=== PATIENT | female | born 1980 | race Hispanic/Latino ===

== ENCOUNTER 2019-10-02 19:53 | Emergency (ER) | payer SELFPAY ==
[2019-10-02] MEDS ORDERED: ONDANSETRON 4 MG/2 ML INJ IV ONE (20:32)
[2019-10-02] MEDS ORDERED: SODIUM CHLORIDE 0.9% 1000 ML 1,000 ML IV ONE (20:32)
--- NOTE | 2019-10-02 20:36 | Emergency Department Report ---
HPI <KENNEDY BELLANETTA - Last Filed: 10/03/19 19:30> - HPI HPI: This is a 39-year-old female presents to the emergency department with the complaint of withdrawal symptoms from heroin, as well as some auditory hallucinations. Patient says that she has a history of heroin use but she thinks that she was given some other type of drug or it was laced with something. She last used this drug this morning. Patient says that she is having nausea, diarrhea, body aches, chills. She is started hearing voices. The patient also says that she is seeing an "vinicius with red wings that is following me" and it is telling her that "the devil is coming." She denies any suicidal or homicidal ideation. Patient has a past medical history of seizures and has been noncompliant with her medication for the past week. She previously was on Depakote but was recently switched to another medication that she cannot member the name of. <NORMAN HOPKINS S - Last Filed: 10/04/19 10:14> - General Chief Complaint: Psych Time Seen by Provider: 10/02/19 20:07 ED Past Medical Hx - Past Medical History Previous Medical History?: Yes Hx Psychiatric Treatment: Yes (anxiety, depression) - Surgical History Past Surgical History?: No - Social History Smoking Status: Current Every Day Smoker Substance Use Type: Heroin <NORMAN HOPKINS Monika - Last Filed: 10/04/19 10:14> ED Review of Systems ROS: Stated complaint: MH EVAL/DRUG ABUSE Other details as noted in HPI <BELLAMALKA - Last Filed: 10/03/19 19:30> ROS: Stated complaint: MH EVAL/DRUG ABUSE Other details as noted in HPI Comment: All other systems reviewed and negative Constitutional: chills. denies: fever Eyes: denies: eye pain, vision change ENT: denies: ear pain, throat pain Respiratory: denies: cough, shortness of breath Cardiovascular: denies: chest pain, palpitations Gastrointestinal: vomiting, diarrhea Genitourinary: denies: dysuria, discharge Musculoskeletal: myalgia. denies: joint swelling Neurological: denies: headache, weakness Psychiatric: auditory hallucinations, visual hallucinations. denies: homicidal thoughts, suicidal thoughts <NORMAN HOPKINS - Last Filed: 10/04/19 10:14> Physical Exam - Physical Exam Vital Signs: Vital Signs 10/02/19 10/02/19 10/02/19 19:57 20:39 22:19 Temperature 98.1 F 98.3 F Pulse Rate 113 H 99 H 99 H Respiratory 20 18 Rate Blood Pressure 149/92 149/92 Blood Pressure 154/81 [Left] O2 Sat by Pulse 98 98 Oximetry 10/03/19 02:23 Temperature 98.3 F Pulse Rate 99 H Respiratory 18 Rate Blood Pressure Blood Pressure 166/71 [Left] O2 Sat by Pulse 99 Oximetry <MALKA BELLA - Last Filed: 10/03/19 19:30> - Physical Exam Vital Signs: Vital Signs 10/02/19 19:57 Temperature 98.1 F Pulse Rate 113 H Respiratory 20 Rate Blood Pressure 149/92 O2 Sat by Pulse 98 Oximetry Physical Exam: GENERAL: The patient is well-developed well-nourished. HENT: Normocephalic. Atraumatic. Patient has moist mucous membranes. EYES: Extraocular motions are intact. NECK: Supple. Trachea is midline. CHEST/LUNGS: Clear to auscultation. There is no respiratory distress noted. HEART/CARDIOVASCULAR: Regular. There is mild tachycardia. There is no murmur. ABDOMEN: Abdomen is soft, nontender. Patient has normal bowel sounds. SKIN: Skin is warm and dry. NEURO: The patient is awake, alert, and oriented. The patient is cooperative. The patient has no motor or sensory neurologic deficits. MUSCULOSKELETAL: There is no tenderness or deformity. There is no limitation range of motion. PSYCH: The patient appears anxious. <NORMAN HOPKINS - Last Filed: 10/04/19 10:14> ED Course Vital Signs 10/02/19 10/02/19 10/02/19 19:57 20:39 22:19 Temperature 98.1 F 98.3 F Pulse Rate 113 H 99 H 99 H Respiratory 20 18 Rate Blood Pressure 149/92 149/92 Blood Pressure 154/81 [Left] O2 Sat by Pulse 98 98 Oximetry 10/03/19 02:23 Temperature 98.3 F Pulse Rate 99 H Respiratory 18 Rate Blood Pressure Blood Pressure 166/71 [Left] O2 Sat by Pulse 99 Oximetry <MALKA BELLA - Last Filed: 10/03/19 19:30> Vital Signs 10/02/19 19:57 Temperature 98.1 F Pulse Rate 113 H Respiratory 20 Rate Blood Pressure 149/92 O2 Sat by Pulse 98 Oximetry <NORMAN HOPKINS - Last Filed: 10/04/19 10:14> ED Medical Decision Making - Lab Data Result diagrams: 10/02/19 20:50 10/02/19 20:50 - Medical Decision Making Our mental health team recommended discharge for outpatient treatment. I have provided discharge instructions and discharge order. <MALKA BELLA - Last Filed: 10/03/19 19:30> - Lab Data Result diagrams: 10/02/19 20:50 10/02/19 20:50 - Medical Decision Making This patient presents to the emergency department with withdrawal from heroin and some auditory and visual hallucinations. Patient is awake and oriented, AAO x 3. The patient says that she is hearing some voices and also has been visualizing an vinicius that is telling her that the devil is coming. Patient denies any diagnosed history of bipolar disorder or schizophrenia. It is possible that the hallucinations are secondary to the withdrawals or undiagnosed underlying psychiatric conditions. She denies any suicidal or homicidal ideations. Regarding her withdrawal, the patient has some chills, mild tremors, nausea, diarrhea. There is been no vomiting or further diarrhea in the ED thus far. She was given some IV fluid resuscitation, dose of IV Zofran and she was given a dose of Catapres for the opiate withdrawals. Patient's mild tachycardia has resolved and the rest of her vital signs have been reassuring including being afebrile. The patient will be seen by the psychiatric assessment team in the morning for further disposition. <NORMAN HOPKINS - Last Filed: 10/04/19 10:14> Critical care attestation.: If time is entered above; I have spent that time in minutes in the direct care of this critically ill patient, excluding procedure time. <MALKA BELLA - Last Filed: 10/03/19 19:30> Critical Care Time: No Critical care attestation.: If time is entered above; I have spent that time in minutes in the direct care of this critically ill patient, excluding procedure time. <NORMAN HOPKINS - Last Filed: 10/04/19 10:14> ED Disposition Is pt being admited?: No Does the pt Need Aspirin: No <MALKA BELLA - Last Filed: 10/03/19 19:30> Is pt being admited?: No Time of Disposition: 00:48 <NORMAN HOPKINS - Last Filed: 10/04/19 10:14> Clinical Impression: Heroin withdrawal, Opiate withdrawal, Hallucinations Disposition: DC-01 TO HOME OR SELFCARE Condition: Stable Additional Instructions: In case of an emergency, please contact the following numbers: [place] Crisis and Access Line: Number: Crisis Text Line: (Text START) Number: [phone] Suicide Prevention Line: Number: Emergency Number: 911 SUBSTANCE ABUSE PROGRAMS: [facility]: Location: [place], [place] [employer] [facility] Address: [address] [place] [address] [facility] Recovery: Address: [address] [place] [address] [facility]: Address: [address] [place] [address] [facility] Community: Address: [address] [place] [address] [facility] Address: [address] [place] [address]. Please contact above numbers to attempt placement into free based program. Medicaid Programs: [facility]: Address: [address] [place] [address] [facility]: Address: [address] [place] [address] [facility] Treatment Centers: [facility] Address: [address] [place] [address] Highlights: Safe medical care by highly trained physicians with over 10 years of experience Supervised Methadone treatment, phase maintenance program, and detoxification Monthly Suboxone Therapy and Treatment with flexible scheduling Comprehensive assessments and full physical examinations [facility] Address: [address] [place] [address] [facility] Address: [address] [place] [address] Referrals: PRIMARY CARE, [Primary Care Provider] - 3-5 Days
[2019-10-02 21:36] LABS: Basophils # (Auto) 0.1 K/mm3 (0.0-0.1); Basophils % (Auto) 1.5 % (0.0-1.8); Eosinophils % (Auto) 0.3 % (0.0-4.3); Hematocrit 41.4 % (30.3-42.9); Hemoglobin 13.8 gm/dl (10.1-14.3); Lymphocytes # (Auto) 0.9 K/mm3 (1.2-5.4); Lymphocytes % (Auto) 11.3 % (13.4-35.0); Mean Corpuscular HGB Conc 34 % (30-34); Mean Corpuscular Volume 86 fl (79-97); Monocytes # (Auto) 0.5 K/mm3 (0.0-0.8); Monocytes % (Auto) 6.1 % (0.0-7.3); Platelet Count 275 K/mm3 (140-440); Red Blood Count 4.79 M/mm3 (3.65-5.03); Red Cell Distribution Width 13.3 % (13.2-15.2)
[2019-10-02] MEDS ORDERED: cloNIDine 0.1 MG TAB PO ONE (21:43)
[2019-10-02 21:51] LABS: BUN/Creatinine Ratio 12; Blood Urea Nitrogen 12 mg/dL (7-17); Calcium 9.5 mg/dL (8.4-10.2); Hemolysis Index 5
[2019-10-02] MEDS ORDERED: KETOROLAC 30 MG/1 ML INJ IV ONE (22:09)
[2019-10-03 02:25] VITALS: BP 166/71
[2019-10-03 02:59] LABS: Bilirubin,Urine NEG (Negative); Blood,Urine MOD (Negative); Color,Urine Amber (Yellow); Mucus,Urine 3+ /HPF; Urobilinogen,Urine < 2.0 mg/dL (<2.0)
[2019-10-03 03:07] LABS: Amphetamine Screen,Urine PRESUMPTIVE POSITIVE; Benzodiazepines Screen,Urine PRESUMPTIVE NEGATIVE; Cannabinoid Screen,Urine PRESUMPTIVE POSITIVE; Cocaine Screen,Urine PRESUMPTIVE NEGATIVE; Methadone Screen,Urine PRESUMPTIVE NEGATIVE; Opiate Screen,Urine PRESUMPTIVE POSITIVE
== END 2019-10-03 19:42 | disposition home or self-care (01) ==
LOC: ED 19:53 → EEVIPCON 19:53 → ED 10-03 19:42
DX: F11.23 Opioid dependence with withdrawal (principal); R44.0 Auditory hallucinations; R19.7 Diarrhea, unspecified
CPT/HCPCS: 36415; 80048; 80307; 81001; 84703; 85025; 87086; 96361; 96374; 99284; J1885; J2405; J7030; 80320; 87076; 87186; 96375; G0480